=== PATIENT | male | born 1980 | race Caucasian/White ===

== ENCOUNTER 2022-03-09 23:47 | Emergency (ER) | payer MEDICAID, SELFPAY ==
--- NOTE | 2022-03-09 23:59 | ECG_ITS ---
Test Reason : CARDIAC ARREST Blood Pressure : / mmHG Vent. Rate : 083 BPM Atrial Rate : 083 BPM P-R Int : 214 ms QRS Dur : 174 ms QT Int : 400 ms P-R-T Axes : 069 117 094 degrees QTc Int : 470 ms Sinus rhythm with sinus arrhythmia with 1st degree A-V block Right bundle branch block Left posterior fascicular block Bifascicular block Inferior infarct , possibly acute ACUTE [place] / STEMI Consider right ventricular involvement in acute inferior infarct Abnormal ECG No previous ECGs available Referred By: Meir Daugherty Electronically Signed By:Mark Norman
[2022-03-10] VITALS (10 sets, daily range): BP systolic 113–196; BP diastolic 70–135; PULSE 80–95; O2SAT 89–99; BMI 29.5
--- NOTE | 2022-03-10 | ECG_ITS ---
Test Reason : REPEAT Blood Pressure : / mmHG Vent. Rate : 087 BPM Atrial Rate : 087 BPM P-R Int : 132 ms QRS Dur : 100 ms QT Int : 352 ms P-R-T Axes : 041 117 087 degrees QTc Int : 423 ms Normal sinus rhythm Incomplete right bundle branch block Possible Right ventricular hypertrophy ST elevation consider inferior injury or acute infarct ACUTE [place] / STEMI Consider right ventricular involvement in acute inferior infarct Abnormal ECG When compared with ECG of 09-MAR-2022 23:59, [place] interval has decreased Incomplete right bundle branch block has replaced Right bundle branch block Criteria for Inferior infarct are no longer Present Referred By: Meir Daugherty Electronically Signed By:ALEXANDER CHAVES MD
--- NOTE | 2022-03-10 00:06 | ED.CPR ---
HPI - CPR General Chief Complaint: Cardiac Arrest/CPR Stated Complaint: CARDIAC ARREST Time Seen by Provider: 03/10/22 00:01 Source: EMS History of Present Illness HPI narrative: Patient with significant past medical history strong family history the father at age of 43 with cardiac arrest per EMS patient complained to the family had his not feeling good when family went to see him in the room patient was not responding, gasping for air, stepfather started [id number] respiration, weatherization coordinator came started on CPR and they gave Narcan 8 mg without any response EMS came to give another 4 mg of Narcan people were 3 mm at that time , engineering documentation specialist showed VFib patient received shocks x4 also amiodarone 300 mg epinephrinex5, calcium chloride and sodium bicarb CPR continue and brought the patient to the ER with PEA Related Data Allergies Allergy/AdvReac Type Severity Reaction Status Date / Time No Known Allergies Allergy Verified 03/10/22 00:01 Review of Systems Review of Systems: Yes Unobtainable due to mental condition PMFSH Past Medical History Medical History No known health problems Social History Social History Advance Directives: No Advance Directives Information Provided: No Physical Exam Vital Signs: Vital Signs: BMI result Body Mass Index 29.5 Active CPR going on patient no central peripheral pulses No signs of trauma Pupils fixed and dilated no spontaneous cardiac activity no spontaneous respiration body warm Course Reevaluation(s) Reevaluation #1: Patient received multiple EPI IV CPR continued, engineering documentation specialist showed ST elevation sinus rhythm blood pressure 170/80 patient is status post intubation cardiac ultrasound showed akinetic LV Time: 00:02 Reevaluation #2: Patient biting the ET tube had to give Versed 2 mg IV repeat EKG showed further ST elevation up till 8 mm now in inferior leads patient been accepted in CCU MM3 bed [address] denney aware of the status patient required 2nd dose of Versed 2 mg IV before transfer Time: 00:49 MDM - Cardiac Arrest/CPR MDM Narrative Medical decision making narrative: Patient with sudden cardiac arrest initial rhythm was VFib received multiple shocks times for multiple IV appy down time of about 45 minutes with active CPR by EMS patient received mouth to mouth breathing at home patient EKG showed [address] elevation inferior leads, case discussed Dr. Mathew foot doctor does not think patient should go to yard labor supervisor need ICU evaluate for brain activity before catheterization lab. Case discussed with Dr. Polo CCU accepted the patient for transfer patient started on heparin bolus and the drip now Lab Data Attestation: I reviewed the patient's lab results. Result diagrams: 03/09/22 23:50 03/09/22 23:50 Labs: Lab Results 03/09/22 03/09/22 03/09/22 Range/Units 23:50 23:50 23:50 WBC 17.2 H (4.8-10.8) X10*3/uL RBC 5.01 (4.60-5.80) X10*6/uL Hgb 15.2 (14.0-18.0) g/dl Hct 50.8 (42.0-52.0) % MCV 101.4 H (80.0-98.0) fL MCH 30.3 (27.0-33.0) pg MCHC 29.9 L (31.0-36.0) g/dl RDW 13.2 (11.0-16.0) % Plt Count 153 L (160-400) X10*3/uL MPV 11.3 (9.4-12.4) fL Immature Gran % (Auto) Cancelled Neut % (Auto) Cancelled Lymph % (Auto) Cancelled Trimble % (Auto) Cancelled Eos % (Auto) Cancelled Baso % (Auto) Cancelled Lymph # (Auto) Cancelled Trimble # (Auto) Cancelled Eos # (Auto) Cancelled Baso # (Auto) Cancelled Abs Immat Gran (auto) Cancelled Absolute Neuts (auto) Cancelled Absolute Nucleated RBC 0.090 H (0.0-0.012) X10*3/uL Nucleated RBC % (auto) 0.5 H (0.0-0.2) /100WBC Neutrophils % (Manual) 34 L (45-73) % Band Neutrophils % 5 (3-5) % Lymphocytes % (Manual) 42 H (20-40) % Atypical Lymphs % (Man) 2 (0-6) % Monocytes % (Manual) 8 (2-11) % Eosinophils % (Manual) 4 (0-4) % Metamyelocytes % 1 % Myelocytes % 2 % Promyelocytes % 2 % Abs Neuts (Manual) 6.7 (2.0-8.3) X10*3/uL Lymphocytes # (Manual) 7.2 H (1.2-4.9) X10*3/uL Atyp Lymphs # (Manual) 0.3 x10*3/uL Monocytes # (Manual) 1.4 H (0.1-1.2) X10*3/uL Eosinophils # (Manual) 0.7 H (0.0-0.4) X10*3/uL Metamyelocytes # 0.2 X10*3/uL Myelocytes # 0.3 X10*/uL Promyelocytes # 0.3 X10*3/uL Smudge Cells PRESENT Platelet Estimate SLIGHTLY DECREASED (NORMAL) Plt Morphology Comment NORMAL RBC Morphology NOTED Macrocytosis 1+ (5-14) /OIF PT 12.9 (9.9-13.0) SEC INR 1.1 (0.9-1.1) APTT 65.8 H* (24.1-38.0) SEC Sodium 147 H (135-145) mmol/L Potassium 5.0 (3.3-5.1) mmol/L Chloride 107 (96-108) mmol/L Carbon Dioxide 14 L (22-29) mmol/L Anion Gap 31 H (12-20) BUN 19 H (9-16) mg/dL Creatinine 1.51 H (0.5-1.4) mg/dL Estim Creat Clear Calc 79.2 Estimated GFR 51 Random Glucose 446 H* (60-115) mg/dL Lactic Acid (0.5-2.0) mmol/L Calcium 12.8 H* (8.4-10.2) mg/dL Magnesium 3.4 H (1.6-2.6) mg/dL Total Bilirubin < 0.2 (0.0-1.0) mg/dL Direct Bilirubin < 0.2 (0.0-0.5) mg/dL AST 165 H (5-37) U/L ALT 256 H (0-40) U/L Alkaline Phosphatase 121 H (39-117) U/L Troponin I High Sens (<3.5-35.0) ng/L B-Natriuretic Peptide (<100) pg/mL Total Protein 6.1 L (6.5-8.0) g/dL Albumin 3.4 L (3.5-5.0) g/dL Lipase 70 (8-78) U/L COVID-19 (BOO) (Negative) COVID-19 Clin Com 03/09/22 03/09/22 03/09/22 Range/Units 23:50 23:50 23:50 WBC (4.8-10.8) X10*3/uL RBC (4.60-5.80) X10*6/uL Hgb (14.0-18.0) g/dl Hct (42.0-52.0) % MCV (80.0-98.0) fL MCH (27.0-33.0) pg MCHC (31.0-36.0) g/dl RDW (11.0-16.0) % Plt Count (160-400) X10*3/uL MPV (9.4-12.4) fL Immature Gran % (Auto) Neut % (Auto) Lymph % (Auto) Trimble % (Auto) Eos % (Auto) Baso % (Auto) Lymph # (Auto) Trimble # (Auto) Eos # (Auto) Baso # (Auto) Abs Immat Gran (auto) Absolute Neuts (auto) Absolute Nucleated RBC (0.0-0.012) X10*3/uL Nucleated RBC % (auto) (0.0-0.2) /100WBC Neutrophils % (Manual) (45-73) % Band Neutrophils % (3-5) % Lymphocytes % (Manual) (20-40) % Atypical Lymphs % (Man) (0-6) % Monocytes % (Manual) (2-11) % Eosinophils % (Manual) (0-4) % Metamyelocytes % % Myelocytes % % Promyelocytes % % Abs Neuts (Manual) (2.0-8.3) X10*3/uL Lymphocytes # (Manual) (1.2-4.9) X10*3/uL Atyp Lymphs # (Manual) x10*3/uL Monocytes # (Manual) (0.1-1.2) X10*3/uL Eosinophils # (Manual) (0.0-0.4) X10*3/uL Metamyelocytes # X10*3/uL Myelocytes # X10*/uL Promyelocytes # X10*3/uL Smudge Cells Platelet Estimate (NORMAL) Plt Morphology Comment RBC Morphology Macrocytosis /OIF PT (9.9-13.0) SEC INR (0.9-1.1) APTT Cancelled (24.1-38.0) SEC Sodium (135-145) mmol/L Potassium (3.3-5.1) mmol/L Chloride (96-108) mmol/L Carbon Dioxide (22-29) mmol/L Anion Gap (12-20) BUN (9-16) mg/dL Creatinine (0.5-1.4) mg/dL Estim Creat Clear Calc Estimated GFR Random Glucose (60-115) mg/dL Lactic Acid 17.1 H* (0.5-2.0) mmol/L Calcium (8.4-10.2) mg/dL Magnesium (1.6-2.6) mg/dL Total Bilirubin (0.0-1.0) mg/dL Direct Bilirubin (0.0-0.5) mg/dL AST (5-37) U/L ALT (0-40) U/L Alkaline Phosphatase (39-117) U/L Troponin I High Sens 207.6 H* (<3.5-35.0) ng/L B-Natriuretic Peptide 26 (<100) pg/mL Total Protein (6.5-8.0) g/dL Albumin (3.5-5.0) g/dL Lipase (8-78) U/L COVID-19 (BOO) (Negative) COVID-19 Clin Com 03/10/22 Range/Units 00:00 WBC (4.8-10.8) X10*3/uL RBC (4.60-5.80) X10*6/uL Hgb (14.0-18.0) g/dl Hct (42.0-52.0) % MCV (80.0-98.0) fL MCH (27.0-33.0) pg MCHC (31.0-36.0) g/dl RDW (11.0-16.0) % Plt Count (160-400) X10*3/uL MPV (9.4-12.4) fL Immature Gran % (Auto) Neut % (Auto) Lymph % (Auto) Trimble % (Auto) Eos % (Auto) Baso % (Auto) Lymph # (Auto) Trimble # (Auto) Eos # (Auto) Baso # (Auto) Abs Immat Gran (auto) Absolute Neuts (auto) Absolute Nucleated RBC (0.0-0.012) X10*3/uL Nucleated RBC % (auto) (0.0-0.2) /100WBC Neutrophils % (Manual) (45-73) % Band Neutrophils % (3-5) % Lymphocytes % (Manual) (20-40) % Atypical Lymphs % (Man) (0-6) % Monocytes % (Manual) (2-11) % Eosinophils % (Manual) (0-4) % Metamyelocytes % % Myelocytes % % Promyelocytes % % Abs Neuts (Manual) (2.0-8.3) X10*3/uL Lymphocytes # (Manual) (1.2-4.9) X10*3/uL Atyp Lymphs # (Manual) x10*3/uL Monocytes # (Manual) (0.1-1.2) X10*3/uL Eosinophils # (Manual) (0.0-0.4) X10*3/uL Metamyelocytes # X10*3/uL Myelocytes # X10*/uL Promyelocytes # X10*3/uL Smudge Cells Platelet Estimate (NORMAL) Plt Morphology Comment RBC Morphology Macrocytosis /OIF PT (9.9-13.0) SEC INR (0.9-1.1) APTT (24.1-38.0) SEC Sodium (135-145) mmol/L Potassium (3.3-5.1) mmol/L Chloride (96-108) mmol/L Carbon Dioxide (22-29) mmol/L Anion Gap (12-20) BUN (9-16) mg/dL Creatinine (0.5-1.4) mg/dL Estim Creat Clear Calc Estimated GFR Random Glucose (60-115) mg/dL Lactic Acid (0.5-2.0) mmol/L Calcium (8.4-10.2) mg/dL Magnesium (1.6-2.6) mg/dL Total Bilirubin (0.0-1.0) mg/dL Direct Bilirubin (0.0-0.5) mg/dL AST (5-37) U/L ALT (0-40) U/L Alkaline Phosphatase (39-117) U/L Troponin I High Sens (<3.5-35.0) ng/L B-Natriuretic Peptide (<100) pg/mL Total Protein (6.5-8.0) g/dL Albumin (3.5-5.0) g/dL Lipase (8-78) U/L COVID-19 (BOO) Negative (Negative) COVID-19 Clin Com See Note Procedures Intubation Time out performed: Yes sedative: none Laryngoscope: Pranav ET Tube Size: 8 ET Tube Uncuffed: Yes Tube Secured Depth (cm): 23 Tube Secured Location: lips Tube Placement Confirmation: visualized tube passing through cords and equal breath sounds bilaterally Intubation Complications: none Critical Care Time Critical Care Time Critical Care Time: Yes Total Critical Care Time: 60 Attestation: I spent 60 minutes of critical care, with interventions, assessments, speaking to patient, consultants, and family. Discharge Plan Discharge Clinical Impression: Cardiac arrest, Acute myocardial infarction Patient Disposition: [facility] Transfer Details: to [facility] CCU
[2022-03-10] MEDS: Aspirin 300 MG SUPP.RECT PR (00:09)
[2022-03-10] MEDS: Heparin Sodium,Porcine 5,000 UNIT/ML VIAL 5000 UNIT IVPUSH (00:09)
[2022-03-10 00:11] LABS: Hematocrit 50.8 % (42.0-52.0); Hemoglobin 15.2 g/dl (14.0-18.0); Mean Corpuscular HGB Conc 29.9 g/dl (31.0-36.0); Mean Corpuscular Hemoglobin 30.3 pg (27.0-33.0); Mean Corpuscular Volume 101.4 fL (80.0-98.0); Mean Platelet Volume 11.3 fL (9.4-12.4); NRBC Pct Auto 0.5 /100WBC (0.0-0.2); Platelet Count 153 X10*3/uL (160-400); Red Blood Count 5.01 X10*6/uL (4.60-5.80); Red Cell Distribution Width 13.2 % (11.0-16.0); White Blood Count 17.2 X10*3/uL (4.8-10.8)
[2022-03-10 00:16] LABS: INTERNATIONAL NORM RATIO 1.1 (0.9-1.1); Prothrombin Time 12.9 SEC (9.9-13.0)
[2022-03-10 00:23] LABS: Partial Thromboplastin Time 65.8 SEC (24.1-38.0)
[2022-03-10 00:29] LABS: Alanine Aminotransferase 256 U/L (0-40); Albumin Level 3.4 g/dL (3.5-5.0); Alkaline Phosphatase 121 U/L (39-117); Anion Gap 31 (12-20); Aspartate Amino Transferase 165 U/L (5-37); Bilirubin Direct < 0.2 mg/dL (0.0-0.5); Bilirubin Total < 0.2 mg/dL (0.0-1.0); Blood Urea Nitrogen 19 mg/dL (9-16); Calcium 12.8 mg/dL (8.4-10.2); Carbon Dioxide 14 mmol/L (22-29); Chloride 107 mmol/L (96-108); Creatinine Clr Calc Pharmacy 79.2; Estimated Glomerular Filt Rate 51; Glucose Random 446 mg/dL (60-115); Lipase 70 U/L (8-78); Magnesium 3.4 mg/dL (1.6-2.6); Sodium 147 mmol/L (135-145); Total Protein 6.1 g/dL (6.5-8.0)
[2022-03-10 00:34] LABS: B Type Natriuretic Peptide 26 pg/mL (<100); Troponin-I High Sensitivity 207.6 ng/L (<3.5-35.0)
[2022-03-10 00:35] LABS: COVID-19 Test Negative (Negative)
[2022-03-10 00:41] LABS: Lactic Acid 17.1 mmol/L (0.5-2.0)
[2022-03-10] MEDS: Midazolam HCl/PF 2 MG/2 ML VIAL IVPUSH ×2 (00:47→00:57)
[2022-03-10 00:53] LABS: Atypical Lymph Absolute Manual 0.3 x10*3/uL; Atypical Lymphs Percent Manual 2 % (0-6); Band Neutrophils Percent 5 % (3-5); Eosinophils Absolute Manual 0.7 X10*3/uL (0.0-0.4); Eosinophils Percent Manual 4 % (0-4); Lymphocytes Absolute Manual 7.2 X10*3/uL (1.2-4.9); Lymphocytes Percent Manual 42 % (20-40); Macrocytosis 1+ (5-14) /OIF; Metamyelocytes Absolute 0.2 X10*3/uL; Metamyelocytes Percent 1 %; Monocytes Absolute Manual 1.4 X10*3/uL (0.1-1.2); Monocytes Percent Manual 8 % (2-11); Myelocytes Absolute 0.3 X10*/uL; Myelocytes Percent 2 %; Neutrophils Absolute Manual 6.7 X10*3/uL (2.0-8.3); Neutrophils Percent Manual 34 % (45-73); Platelet Estimate SLIGHTLY DECREASED (NORMAL); Platelet Morphology Comment NORMAL; Promyelocytes Absolute 0.3 X10*3/uL; Promyelocytes Percent 2 %; RBC Morphology NOTED; Smudge Cells PRESENT
--- NOTE | 2022-03-10 00:57 | PC.NURSE ---
CALL OUT TO [facility] UNDERWRITER @[phone]
--- NOTE | 2022-03-10 00:58 | PC.NURSE ---
SECOND CALL TO [facility] MANAGER PSYCHOLOGY @[phone]
--- NOTE | 2022-03-10 01:00 | PC.NURSE ---
CALL OUT TO [facility] TRANSFER LINE @[phone]
[2022-03-10 02:05] LABS: Reflex Lactate? Lactic Acid Added
--- NOTE | 2022-03-10 02:43 | PC.NURSE ---
After achieving ROSC at our facility, PT went back into cardiac arrest. At this time (00:14) CPR was initiated and PT received 1 mg of epi. Pulse check at 00:17 indicated PT was still in arrest and received another 1 mg epi. At 00:20 code team achieved ROSC. Vitals at this time: BP-172/89, HR-80, ETCO2-45. Code team initiated cooling (00:24) with ice packs to the groin, armpits and the neck. Second liter of NS fluid hung at 00:26. PT's pressure started to decrease (101/59) and Levophed drip initiated at 00:32 at a rate of 0.05 mcg/kg/hr. EKG performed at 00:46 which redemonstrated STEMI. PT started to become irritable with intubation at 00:47 as he was bucking ET tube and received 2 mg of Versed. Pressure continued to increase (174/120) which prompted team to pause Levophed drip. PT continued to be adrian while intubated; another 2 mg of Versed given. Second IV inserted in PT's right forearm prior to transfer to EMS stretcher (01:00). PT transferred to EMS stretcher at 01:10 and prepared for transport. This RN unable to scan Levophed into the computer after [place] [facility] [place] ordered heparin drip but med was not hung prior to transport. Report given to [facility].
[2022-03-11 07:26] LABS: Glucose, Whole Blood 281 mg/dL (60-115)
== END 2022-03-10 01:15 | disposition short-term general hospital (02) ==
PROVIDERS: Physician Assistant; Emergency Provider Internal Medicine
DX: I46.9 Cardiac arrest, cause unspecified (principal); I21.3 ST elevation (STEMI) myocardial infarction of unspecified site; Z20.822 Contact with and (suspected) exposure to COVID-19
CPT/HCPCS: 31500; 36415; 80048; 80076; 82947; 83605; 83690; 83735; 83880; 84484; 85007; 85027; 85610; 85730; 87635; 93005; 94002; 96374; 96375; 99285; 99291; J0171; J2250